=== PATIENT | female | born 1970 | race African-American/Black ===

== ENCOUNTER 2016-10-27 13:55 | Emergency (ER) | payer BC ==
--- NOTE | ~2016-10-27 | CR63 ---
[facility] A Service of [facility] RADIOLOGY TEXT RESULTS PATIENT: GENESIS TIM LOCATION: CFTX : 70 UNIT #: [id number] AGE: [address]: Prerna Gutierrez APRN SEX: F ORDER DR: [id number] [facility] [address] [place], [place] [address] [id number] E MR#: [id number] Acc #: [id number] NAME: GENESIS TIM : 1970 SEX: F STUDY DATE/TIME: 10/27/2016 15:47 UNIT: CFTX ROOM: STUDY DESCRIPTION: CR Chest 2 View Attending Physician: Prerna Gutierrez A.P.R.N. Ordering Physician: Ed Jacob Valenzuela M.D. Primary Care Physician: John Paul Harmon M.D. MEDICAL IMAGING REPORT This report is preliminary unless electronic signature is present EXAM Two views chest HISTORY Cough, short or air, wheezing. FINDINGS PA and lateral radiographs of the chest. COMPARISON 06/09/2016 FINDINGS Heart and mediastinum normal in size and contour. Lungs are well inflated. No acute pulmonary disease, pleural effusion or pneumothorax. No suspicious nodule. The bony structures are unremarkable. IMPRESSION 1. No acute pulmonary disease. No pleural effusion or pneumothorax. 2. Cardiomediastinal contour is normal. 3. Bony structures are unremarkable. Dictated by... Josse Hull M.D. THIS IS AN ELECTRONICALLY VERIFIED REPORT Josse Hull M.D. at 10/28/2016 5:16 PM RADHA/les TD: 10/27/2016 22:28 JOB #: [id number] [facility] A Service [facility] RADIOLOGY TEXT RESULTS PATIENT: GENESIS TIM LOCATION: [place] : [birth year] UNIT #: [id number] AGE: [address]: Prerna Gutierrez APRN SEX: F ORDER DR: MEDICAL IMAGING REPORT Page 1 of 1 COPY
[~2016-10-27 13:55] MED LIST: ADVAIR 2501 DISK W/1 IH; ALBUTEROL 0.5ML INH; ALBUTEROL MININEB NEB; ALBUTEROL17 G1 IH; ALBUTEROL17 GM; ALBUTEROL17 GM INH; ALLERGY10 M1 PO; ATROVENT NEB; AZITHROMYCIN500 MG PO; BACTRIM DS TABL1 TA1 PO; BACTRIM DS TABL1 TAB PO; BENTYL10 MG PO; CIPRO PO; COMBIVENT INH14.7 GM INH; COMBIVENT MININEB INH; COMBIVENT14.7 GM INH; DETROL LA PO; DOXYCYCLINE HY100 M1 PO; DOXYCYCLINE PO; DUONEB 2.5-0.5 M3 ML NEB; EFFEXOR75 MG PO; ERYTHROMYCIN O3.5 GM OD; ERYTHROMYCIN250 M1 PO; IBUPROFEN800 MG PO; IPRAT-ALBUT 0.5-3 ML INH; KEFLEX PO; KLONOPIN0.5 MG PO; LORTAB 7.51 TAB 7.5/ PO; MEDROL PO; MEDROL4 MG/DOSE- PO; OMNICEF300 M1 PO; PHENERGAN PO; PHENERGAN25 M1 PO; PREDNISONE PO; PREDNISONE10 MG PO; PREDNISONE10 MG/DOSE PO; PREDNISONE50 MG PO; PRIMATENE MIS IH; PROVENTIL HFA; PROVENTIL4 MG INH; QVAR7.3 G1 INH; ROBITUSSIN A-C S5 ML PO; ROBITUSSIN A-C-S1 ML PO; SPIRIVA18 MCG INH; SYMBICORT INH; VENTOLIN5 MG/ML IH; VIBRAMYCIN100 M1 PO; ZITHROMAX PO; ZOFRAN PO; ZTUSS EXPECTOR480 ML PO; [UNRECOGNIZED DRUG - OTHER] PO
[2016-10-27 16:29] LABS: INFLUENZA A NEG (NEG); INFLUENZA B NEG (NEG)
== END 2016-10-27 16:58 | disposition home or self-care (01) ==
LOC: CFTX 13:55 → CED 13:55 → CFTX 16:23
PROVIDERS: Nurse Practitioner
DX: J45.901 Unspecified asthma with (acute) exacerbation (principal); J11.1 Influenza due to unidentified influenza virus with other respiratory manifestations; F17.210 Nicotine dependence, cigarettes, uncomplicated; Z88.0 Allergy status to penicillin
CPT/HCPCS: 71020; 87651; 87804; 94640; 99285

== ENCOUNTER 2017-02-04 13:43 | Emergency (ER) | payer BC ==
[~2017-02-04] VITALS: Ht 172.7 cm; Wt 131.5 kg
--- NOTE | ~2017-02-04 | CR72 ---
[facility] A Service of [facility] RADIOLOGY TEXT RESULTS PATIENT: GENESIS TIM LOCATION: [facility] : [birth year] UNIT #: [id number] AGE: [address]: John Paul Copeland MD SEX: F ORDER DR: [id number] [facility] [address] [place], [place] [address] [id number] E MR#: [id number] Acc #: [id number] NAME: GENESIS TIM : 1970 SEX: F STUDY DATE/TIME: 02/04/2017 17:39 UNIT: [facility] ROOM: STUDY DESCRIPTION: CR Chest Single View Portable Attending Physician: John Paul Copeland M.D. Ordering Physician: John Paul Copeland M.D. Primary Care Physician: John Paul Harmon M.D. MEDICAL IMAGING REPORT This report is preliminary unless electronic signature is present EXAM Portable chest, 02/04/2017. HISTORY Cough, shortness of breath and chest pain for 4 days. FINDINGS A single AP portable view of the chest shows both lungs to be clear. The heart is normal in size. The mediastinal contour is normal. No significant bone abnormalities are seen. IMPRESSION Normal portable chest. Dictated by... Manuelito Corcoran M.D. THIS IS AN ELECTRONICALLY VERIFIED REPORT Manuelito Corcoran M.D. at 02/05/2017 8:40 AM TALI/emilio TD: 02/04/2017 21:11 JOB #: [id number] MEDICAL IMAGING REPORT Page 1 of 1 COPY
--- NOTE | ~2017-02-04 | EKG ---
PATIENT: GENESIS TIM UNIT #: [id number] Ventricular Rate: 83 BPM Atrial Rate: 83 BPM P-R Interval: 130 ms QRS Duration: 80 ms Q-T Interval: 368 ms QTC Calculation(Bezet): 432 ms P [place]: 36 degrees Calculated R [place]: 54 degrees Calculated T [place]: 43 degrees Diagnosis Line: Normal sinus rhythm Diagnosis Line: Normal ECG Diagnosis Line: When compared with ECG of 10-JAN-2016 01:41, Diagnosis Line: ST elevation now present in Inferior leads Diagnosis Line: Confirmed by WILDA LANDEROS MD ([id number]) on Diagnosis Line: 02/05/2017 9:44:55 AM INTERPRETING MD: LETI TERRELL
[2017-02-04 14:08] LABS: BASOPHIL% 0.1 % (0-2.5); EOSINOPHIL# 0.2 X10e3 (0-0.7); EOSINOPHIL% 3.9 % (0.0-7.0); HEMATOCRIT 45.3 % (35.0-45.0); HEMOGLOBIN 14.7 gm/dL (12.0-16.0); LYMPHOCYTE# 1.8 X10e3 (1.0-3.5); LYMPHOCYTE% 43.9 % (17.0-45.0); MEAN CELL VOLUME 83.8 FL (83-96); MEAN CORPUSCULAR HEMOGLOBIN 27.1 PG (28-34); MEAN CORPUSCULAR HGB CONC 32.4 g/dL (30-36); MEAN PLATELET VOLUME 8.7 FL (6.5-11.5); MONOCYTE# 0.3 X10e3 (0-1.0); MONOCYTE% 8.3 % (3.0-12.0); NEUTROPHIL# 1.8 X10e3 (1.5-7.1); NEUTROPHIL% 43.8 % (40-75); PLATELET COUNT 257 X10e3 (140-420); RED CELL DISTRIBUTION WIDTH 15.2 % (11.0-15.5); WHITE BLOOD COUNT 4.2 X10e3 (4.0-10.5)
[2017-02-04 14:15] LABS: DIFF IND NO
[2017-02-04 14:35] LABS: POC - CKMB 1.5 ng/mL (0.0-7.9); POC - TROPONIN <0.05 ng/mL (<=0.05)
[2017-02-04 14:38] LABS: ALBUMIN SERUM 3.9 g/dL (3.5-5.0); BILIRUBIN, DIRECT 0.1 mg/dL (0.0-0.2); BILIRUBIN,INDIRECT 0.1 mg/dL (0.0-0.9); BILIRUBIN,TOTAL 0.2 mg/dL (0.2-2.0); CALCIUM SERUM 9.4 mg/dL (8.4-10.2); CREATININE SERUM 0.8 mg/dL (0.6-1.4); GLOM FILT RATE Estimated 101.8 mL/min (>60); POTASSIUM 4.5 mmol/L (3.5-5.1); PROTEIN TOTAL SERUM 7.1 g/dL (6.0-8.3)
[2017-02-04 16:31] LABS: POC - TROPONIN <0.05 ng/mL (<=0.05)
== END 2017-02-04 18:27 | disposition home or self-care (01) ==
LOC: CED 13:43
PROVIDERS: Emergency Medicine
DX: J45.901 Unspecified asthma with (acute) exacerbation (principal); J06.9 Acute upper respiratory infection, unspecified; F17.200 Nicotine dependence, unspecified, uncomplicated; Z88.0 Allergy status to penicillin
CPT/HCPCS: 36415; 71010; 80048; 80076; 82553; 84484; 85025; 93005; 94640; 99285